=== PATIENT | male | born 1965 | race Caucasian/White ===

== ENCOUNTER → 2023-12-20 11:52 | Outpatient (REF) | payer OTHER, SELFPAY | LOC: HWRAD 11:52 | PROVIDERS: ATTENDING PHYSICIAN Internal Medicine Critical Care Medicine; FAMILY PHYSICIAN Family Medicine | DX: Z87.891 Personal history of nicotine dependence (principal) | CPT/HCPCS: 71271 ==

== ENCOUNTER 2023-12-21 06:17 | Day surgery (SDC) | payer OTHER, SELFPAY ==
[2023-12-16 06:43] VITALS: BMI 34.7
[2023-12-16 09:20] LABS: Hematocrit 44.1 % (39.0-52.0); Hemoglobin 14.5 g/dL (13.0-18.0); Mean Corp Hgb Conc. 32.9 g/dL (33.0-37.0); Mean Corpuscular Hgb 33.5 pg (27.0-31.0); Mean Corpuscular Volume 101.8 fL (80.0-94.0); Mean Platelet Volume 11.5 fL (7.4-10.4); Platelet Count 190 10^3/uL (130-400); Red Blood Cell Count 4.33 10^6/uL (4.70-6.10); Red Cell Dist. Width 13.2 % (11.5-14.5)
[2023-12-16 09:40] LABS: Blood Urea Nitrogen 24 mg/dl (9-20); Calcium 9.2 mg/dl (8.4-10.2); Carbon Dioxide 26 mmol/L (22-30); Chloride 105 mmol/L (98-107); Estimated Creatinine Clearance 93 ml/min; Glucose 92 mg/dl (70-99); Potassium 4.3 mmol/L (3.5-5.1); Sodium 140 mmol/L (135-145); eGFR > 60.00
[2023-12-21] VITALS (9 sets, daily range): BP systolic 101–134; BP diastolic 62–78; BMI 34.7
[2023-12-21 11:43] LABS: Glucose - Point of Care 97 mg/dl (70-99)
[2023-12-21] MEDS: TYLENOL 1000 MG PO (11:51)
[2023-12-21 15:02] LABS: Glucose - Point of Care 113 mg/dl (70-99)
== END 2023-12-21 16:57 | disposition home or self-care (01) ==
LOC: SDS 06:17
PROVIDERS: ATTENDING PHYSICIAN Surgery; FAMILY PHYSICIAN Family Medicine
DX: K42.9 Umbilical hernia without obstruction or gangrene (principal)
CPT/HCPCS: 49591; 36415; 80048; 82962; 85027; 93005

== ENCOUNTER 2025-04-09 06:28 | Day surgery (SDC) | payer OTHER, SELFPAY ==
[2025-04-09 07:20] LABS: Glucose - Point of Care 107 mg/dl (70-99)
== END 2025-04-09 08:50 | disposition home or self-care (01) ==
LOC: GI 06:28
PROVIDERS: ATTENDING PHYSICIAN Surgery
DX: Z12.11 Encounter for screening for malignant neoplasm of colon (principal); K57.30 Diverticulosis of large intestine without perforation or abscess without bleeding; D12.0 Benign neoplasm of cecum; Z86.0100 Personal history of colon polyps, unspecified
CPT/HCPCS: 45380; 82962; 88305

== ENCOUNTER → 2025-04-30 06:53 | Outpatient (REF) | payer OTHER, SELFPAY | LOC: MRI 06:53 | PROVIDERS: ATTENDING PHYSICIAN Physician Assistant Medical; FAMILY PHYSICIAN Physician Assistant Medical | DX: M25.562 Pain in left knee (principal) | CPT/HCPCS: 73721 ==